=== PATIENT | female | born 1980 | race Caucasian/White ===

== ENCOUNTER 2024-12-22 10:30 | Emergency (ER) | payer MEDICAID ==
[~2024-12-22] VITALS: Ht 152.4 cm; Wt 173.5 kg
[2024-12-22] MEDS ORDERED: VENTOLIN HFA18 GM INH (12:36)
[2024-12-22] MEDS ORDERED: ROBITUSSIN COU237 M2 PO (12:36)
[2024-12-22 12:40] VITALS: BP 150/83
== END 2024-12-22 12:40 | disposition home or self-care (01) ==
LOC: ED 10:30
DX: J06.9 Acute upper respiratory infection, unspecified (principal); Z88.6 Allergy status to analgesic agent; Z88.5 Allergy status to narcotic agent
CPT/HCPCS: 99284

== ENCOUNTER 2025-01-29 11:45 | Emergency (ER) | payer OTHER ==
[~2025-01-29] VITALS: Ht 152.4 cm; Wt 178.0 kg
[~2025-01-29 11:45] MED LIST: ROBITUSSIN COU237 M2 PO; VENTOLIN HFA18 GM INH
[2025-01-29] MEDS ORDERED: LITHIUM CARBON600 MG PO (12:59)
[2025-01-29] MEDS ORDERED: CEPHALEXIN MONOHYDRATE 500 MG CAP PO ONE (13:00)
[2025-01-29] MEDS ORDERED: KAPSPARGO SPRIN25 MG PO (13:00)
[2025-01-29] MEDS ORDERED: LISINOPRIL2.5 MG (13:00)
[2025-01-29] MEDS ORDERED: CLOTRIMAZOLE-745 GM TOP (13:05)
[2025-01-29] MEDS ORDERED: CEPHALEXIN500 M1 PO (13:05)
[2025-01-29 13:14] VITALS: BP 151/84
== END 2025-01-29 13:14 | disposition home or self-care (01) ==
LOC: ED 11:45
DX: L03.116 Cellulitis of left lower limb (principal); J45.909 Unspecified asthma, uncomplicated; Z88.5 Allergy status to narcotic agent; Z88.8 Allergy status to other drugs, medicaments and biological substances; Z88.1 Allergy status to other antibiotic agents
CPT/HCPCS: 99283-25; A9270